=== PATIENT | male | born 1950 | race Caucasian/White ===

== ENCOUNTER → 2016-07-11 | Outpatient (CLI) | payer OTHER, MEDICARE, BC ==
[~2016-07-11] MED LIST: ASA CHILDREN'S81 MG PO; ASA325 MG GT; AUGMENTIN875 MG; AUGMENTIN875 MG PO; CARDIZEM CD240 M1 PO; CARDIZEM60 MG GT; CARDIZEM60 MG PO; CINNAMON500 MG PO; CLARITIN10 M2 PO; CLARITIN10 MG PO; COLACE-DPS100 MG PO; COMBIGAN5 ML OU; COMPAZINE10 MG PO; COZAAR100 MG PO; CRESTOR40 MG PO; DECADRON-DPS4 MG PO; DOXEPIN GT; DULCOLAX-DPS10 MG PR; DUONEB DPS3 ML IH; DUONEB DPS3 ML PO; FLEX SQ; FLEXERIL-DPS10 MG PO; GLUCAGON1 MG/ML IM; GLUTOSE 1537.5 GM GT; GLUTOSE 1537.5 GM PO; HIBICLENS120 ML PO; HUMALOG100 UNIT/1 SQ; HUMULIN 70100 UNIT/1 SQ; HYDROCODONE 5MG/5 MG PO; JANUMET 50-1,01 EACH PO; KEFLEX-DPS250 MG PO; KEFLEX500 MG PO; KLONOPIN DPS0.5 MG PO; KLOR-CON M2020 ME1 PO; LASIX DPS40 MG GT; LASIX DPS40 MG PO; LASIX40 M1 PO; LATANOPROST2.5 ML OU; LEVAQUIN500 MG PO; LEVEMIR100 UNIT/1 SQ; LINZESS145 MCG PO; LIPITOR DPS20 MG PO; LIPITOR20 MG PO; LOPERAMIDE1 MG/5 ML GT; MAALOX DPS30 ML GT; MAALOX DPS30 ML PO; MARYS PO; MELATONIN3 MG GT; MICRO-K DPS10 MEQ PO; NASACORT AQ D16.5 GM NS; NASAREL NASAL S25 ML NS; NITROSTAT0.4 MG SL; OMNICEF DPS300 MG PO; OXY IR DPS5 MG PO; OXY-CONTIN10 MG PO; OXY-CONTIN20 MG PO; OXYCONTIN20 MG PO; PEPCID DPS20 MG PO; PERIDEX DPS473 ML PO; PERIDEX15 ML PO; PLAVIX75 MG PO; POTASSIUM PO; PRILOSEC DPS20 MG GT; PROTONIX40 MG PO; ROXICODONE5 MG/5 ML GT; SENOKOT S1 TAB GT; SENOKOT S1 TAB PO; SURFAK DPS240 MG PO; TYLENOL DP650 MG/20. GT; TYLENOL DPS325 MG GT; TYLENOL DPS325 MG PO; TYLENOL EXTRA500 M1 PO; TYLENOL EXTRA500 MG PO; TYLENOL-DPS650 MG PR; ULTRAM DPS50 MG PO; XALATAN2.5 ML OU; XYLOCAINE VISC100 ML PO; ZOFRAN4 MG GT; ZOFRAN4 MG PO; ZOLOFT DPS100 MG PO; ZOLOFT DPS25 MG GT; ZOLOFT DPS50 MG PO; [UNRECOGNIZED DRUG - OTHER] GT; [UNRECOGNIZED DRUG - OTHER] PO; [UNRECOGNIZED DRUG - OTHER] PO; [UNRECOGNIZED DRUG - OTHER] PO
== END | disposition home or self-care (01) ==
LOC: RAD.S 07:46
DX: R13.12 Dysphagia, oropharyngeal phase (principal)

== ENCOUNTER → 2016-09-19 | Outpatient (CLI) | payer MEDICARE, BC | END | disposition home or self-care (01) | LOC: RAD.S 09:23 | DX: R13.12 Dysphagia, oropharyngeal phase (principal) ==

== ENCOUNTER 2016-10-28 11:46 | Emergency (ER) | payer MEDICARE, BC ==
[~2016-10-28 11:46] MED LIST changes: -CARDIZEM60 MG PO; -COLACE-DPS100 MG PO; -COMBIGAN5 ML OU; -CRESTOR40 MG PO; -DUONEB DPS3 ML PO; -GLUTOSE 1537.5 GM PO; -HIBICLENS120 ML PO; -KLONOPIN DPS0.5 MG PO; -LINZESS145 MCG PO; -MAALOX DPS30 ML PO; -NASAREL NASAL S25 ML NS; -OMNICEF DPS300 MG PO; -PEPCID DPS20 MG PO; -TYLENOL DPS325 MG PO; -ULTRAM DPS50 MG PO; -ZOLOFT DPS100 MG PO; -[UNRECOGNIZED DRUG - OTHER] PO; -[UNRECOGNIZED DRUG - OTHER] PO
--- NOTE | 2016-10-28 22:03 | ER ---
ADMIT: 10/28/2016 RM/LOC: ER [facility] MR#: [id number] [address] [id number] TYSON SELINA Ian [address] [place] [id number] Emergency Room Report SEX: M AGE: 66 : 1950 DATE: 10/28/2016 The patient is a 66-year-old male with a past medical history of oral cavity tumor, status post surgery resection, one session of chemotherapy and radiotherapy, who came to the ER with chief complaint of recheck PEG tube. The patient states while he tried to infuse, the PEG tube cap came off and he could not find it, and he is not sure if it is working well. The patient denies any nausea, vomiting, shortness of breath, chest pain, headaches, or any acute complaints. The patient states during the last few months, he lost about 10 pounds. The patient is getting food through PEG tube, but per spouse, is not taking well because he feels full after taking a little bit of Glucerna. PHYSICAL EXAMINATION: GENERAL: The patient was alert, oriented, in no pain or distress. HEAD AND NECK: Except for right facial nerve palsy and swelling, mass in the bilateral submandibular, mostly on the left and some white phlegm-like material on the right oropharynx with very distinct border, postsurgical scab, scar versus postnasal discharge coming down of the posterior nasopharyngeal area, the rest of the physical exam was noncontributory. CHEST: Clear bilaterally. Normal heart sounds. ABDOMEN: Soft. PEG tube in place. PEG tube is working well, cap was placed. The rest of the physical exam is noncontributory. The patient was advised to follow up with the primary doctor for further adjustment in the diet if necessary per their discretion. The patient has close followup with the primary doctor and was discharged home. Geovany Lam MD/ alisa JOB #: [id number] CC: Andrew Gloria MD, Attending Physician Erasto Calderón DO, Family Physician
[2017-01-24] MEDS ORDERED: ASA CHILDREN'S81 MG PO (18:00)
[2017-01-24] MEDS ORDERED: CARDIZEM60 MG PO (18:00)
[2017-01-24] MEDS ORDERED: XYLOCAINE VISC100 ML PO (18:01)
[2017-01-24] MEDS ORDERED: COMBIGAN5 ML OU (18:01)
[2017-01-24] MEDS ORDERED: LINZESS145 MCG PO (18:01)
[2017-01-24] MEDS ORDERED: CRESTOR40 MG PO (18:02)
[2017-01-24] MEDS ORDERED: XALATAN2.5 ML OU (18:02)
[2017-01-24] MEDS ORDERED: KLONOPIN DPS0.5 MG PO (18:02)
[2017-01-24] MEDS ORDERED: ZOLOFT DPS100 MG PO (18:02)
[2017-01-24] MEDS ORDERED: LEVEMIR100 UNIT/1 SQ ×2 (18:03)
[2017-01-24] MEDS ORDERED: HIBICLENS120 ML PO (18:03)
[2017-01-24] MEDS ORDERED: ULTRAM DPS50 MG PO (18:03)
[2017-01-24] MEDS ORDERED: TYLENOL DPS325 MG PO (18:05)
[2017-01-24] MEDS ORDERED: [UNRECOGNIZED DRUG - OTHER] PO (18:05)
[2017-01-24] MEDS ORDERED: COLACE-DPS100 MG PO (18:05)
[2017-01-24] MEDS ORDERED: [UNRECOGNIZED DRUG - OTHER] PO (18:06)
[2017-01-24] MEDS ORDERED: OXY-CONTIN20 MG PO (18:06)
[2017-01-24] MEDS ORDERED: NITROSTAT0.4 MG SL (18:07)
[2017-01-24] MEDS ORDERED: OXY IR DPS5 MG PO (18:07)
[2017-01-24] MEDS ORDERED: PEPCID DPS20 MG PO (18:08)
[2017-01-24] MEDS ORDERED: DUONEB DPS3 ML IH (18:08)
[2017-01-24] MEDS ORDERED: NASAREL NASAL S25 ML NS (18:08)
[2017-01-24] MEDS ORDERED: OMNICEF DPS300 MG PO (18:09)
[2017-01-24] MEDS ORDERED: SURFAK DPS240 MG PO (18:09)
[2017-01-24] MEDS ORDERED: GLUTOSE 1537.5 GM PO (18:09)
[2017-01-24] MEDS ORDERED: HUMALOG100 UNIT/1 SQ (18:09)
[2017-01-24] MEDS ORDERED: DUONEB DPS3 ML PO (18:10)
[2017-01-24] MEDS ORDERED: MAALOX DPS30 ML PO (18:10)
== END 2016-10-28 14:00 | disposition home or self-care (01) ==
LOC: ER 11:46
DX: Z43.1 Encounter for attention to gastrostomy (principal); I10 Essential (primary) hypertension; E11.9 Type 2 diabetes mellitus without complications; Z85.819 Personal history of malignant neoplasm of unspecified site of lip, oral cavity, and pharynx

== ENCOUNTER 2016-12-17 13:12 | Emergency (ER) | payer MEDICARE, BC ==
--- NOTE | 2016-12-22 19:07 | ER ---
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 The patient came to the ER with a chief complaint of sore throat for 1 week. The patient states he had on and off sore throat and he has chronic jaw pain. After surgery, the patient has no recent radiation or chemotherapy since , and the patient was allegedly was told that he is cancer free. The patient last week has been seen by ENT, Dr. Reynolds, and also by Katalina for the same dysphagia and was extensively examined and is already on care for sore throat with lidocaine, gargling, and some pain killers oxycodone. The patient also had dysphagia chronically, and the main feeding route is through the feeding tube which the patient used and is working perfectly. The patient states he had a temperature of 99, and he denies any headaches, neck pain, chest pain, shortness of breath, or abdominal pain. PHYSICAL EXAMINATION: VITAL SIGNS: The patient was afebrile in the ER. Temperature was 96, respiratory rate 16, blood pressure 150/74 with heart rate of 86. GENERAL: The patient was in no pain or distress, lying in bed with some swelling chronically on the left submandibular and maxillary area without any erythema or tenderness. HEENT: In the oral cavity, there is some opening because of the surgery and removal of the soft palate on the right side without any signs of infections. Oropharynx is mildly erythematous without any exudate, I did not feel any enlarged lymph nodes. The patient had no tenderness in the neck and trachea is midline. CHEST: Clear bilaterally. HEART: Normal heart sounds. No murmurs or gallops. ABDOMEN: Soft. Rest of the physical exam is noncontributory. G tube is in place and is not erythematous and no signs of infection around the insertion. LABORATORY DATA: The patient had negative rapid strep test. White blood cell was 7.9 with absolute neutrophil count of 6.5, and hemoglobin of 10.4, and with platelets of 200,000. ADMIT: 12/17/2016 RM/LOC: ER [facility] MR#: [id number] [id number] [place], [place] [id number] SELINA MEHTA [address] [place] [address] Emergency Room Report SEX: M AGE: 66 : 1950 IMPRESSION AND PLAN: The patient was reassured and the continuation of the care was discussed with the patient. The patient was mentioned that he needs continuation of the care with the ENT physicians and the primary care doctor. At this stage, there is no further workup needed to be done in the ER. The patient is stable, can use feeding tube properly. The patient and family at bedside. They mentioned that they would follow up with the primary care physician next day and also have another appointment with the ENT to get all their questions answered. The patient already has oxycodone for pain control at home. The patient is stable and was discharged home with the diagnosis of sore throat and throat pain, questionable viral syndrome, and chronic dysphagia. Geovany Lam MD/ alisa JOB #: [id number] CC: Andrew Gloria MD, Attending Physician UNKNOWN, Family Physician
[2017-01-24] MEDS ORDERED: CARDIZEM60 MG PO (18:00)
[2017-01-24] MEDS ORDERED: ASA CHILDREN'S81 MG PO (18:00)
[2017-01-24] MEDS ORDERED: XYLOCAINE VISC100 ML PO (18:01)
[2017-01-24] MEDS ORDERED: COMBIGAN5 ML OU (18:01)
[2017-01-24] MEDS ORDERED: LINZESS145 MCG PO (18:01)
[2017-01-24] MEDS ORDERED: ZOLOFT DPS100 MG PO (18:02)
[2017-01-24] MEDS ORDERED: KLONOPIN DPS0.5 MG PO (18:02)
[2017-01-24] MEDS ORDERED: CRESTOR40 MG PO (18:02)
[2017-01-24] MEDS ORDERED: XALATAN2.5 ML OU (18:02)
[2017-01-24] MEDS ORDERED: HIBICLENS120 ML PO (18:03)
[2017-01-24] MEDS ORDERED: LEVEMIR100 UNIT/1 SQ ×2 (18:03)
[2017-01-24] MEDS ORDERED: ULTRAM DPS50 MG PO (18:03)
[2017-01-24] MEDS ORDERED: COLACE-DPS100 MG PO (18:05)
[2017-01-24] MEDS ORDERED: TYLENOL DPS325 MG PO (18:05)
[2017-01-24] MEDS ORDERED: [UNRECOGNIZED DRUG - OTHER] PO (18:05)
[2017-01-24] MEDS ORDERED: [UNRECOGNIZED DRUG - OTHER] PO (18:06)
[2017-01-24] MEDS ORDERED: OXY-CONTIN20 MG PO (18:06)
[2017-01-24] MEDS ORDERED: NITROSTAT0.4 MG SL (18:07)
[2017-01-24] MEDS ORDERED: OXY IR DPS5 MG PO (18:07)
[2017-01-24] MEDS ORDERED: PEPCID DPS20 MG PO (18:08)
[2017-01-24] MEDS ORDERED: NASAREL NASAL S25 ML NS (18:08)
[2017-01-24] MEDS ORDERED: DUONEB DPS3 ML IH (18:08)
[2017-01-24] MEDS ORDERED: OMNICEF DPS300 MG PO (18:09)
[2017-01-24] MEDS ORDERED: GLUTOSE 1537.5 GM PO (18:09)
[2017-01-24] MEDS ORDERED: HUMALOG100 UNIT/1 SQ (18:09)
[2017-01-24] MEDS ORDERED: SURFAK DPS240 MG PO (18:09)
[2017-01-24] MEDS ORDERED: MAALOX DPS30 ML PO (18:10)
[2017-01-24] MEDS ORDERED: DUONEB DPS3 ML PO (18:10)
== END 2016-12-17 15:15 | disposition home or self-care (01) ==
LOC: ER 13:12
DX: J02.9 Acute pharyngitis, unspecified (principal); R13.10 Dysphagia, unspecified; R07.0 Pain in throat; I10 Essential (primary) hypertension; E11.9 Type 2 diabetes mellitus without complications